=== PATIENT | male | born 1945 | race Caucasian/White ===

== ENCOUNTER 2018-12-23 16:38 | Emergency (ER) | payer MEDICARE, OTHER ==
[~2018-12-23] VITALS: Ht 182.9 cm; Wt 90.7 kg
[2018-12-23 17:30] LABS: BASOPHILS ABSOLUTE AUTO 0.06 K/mm3 (0.00-0.23); BASOPHILS PERCENT AUTO 1 % (0-2); EOSINOPHILS ABSOLUTE AUTO 0.41 K/mm3 (0.00-0.68); EOSINOPHILS PERCENT AUTO 5 % (0-6); Hematocrit 48.3 % (37.0-53.0); Hemoglobin 16.5 g/dL (13.5-17.5); IMMATURE GRAN ABSOLUTE AUTO 0.03 K/mm3 (0.00-0.10); IMMATURE GRAN PERCENT AUTO 0 % (0-1); LYMPHOCYTES ABSOLUTE AUTO 1.63 K/mm3 (0.84-5.20); LYMPHOCYTES PERCENT AUTO 21 % (21-46); MONOCYTES ABSOLUTE AUTO 0.62 K/mm3 (0.16-1.47); MONOCYTES PERCENT AUTO 8 % (4-13); Mean Corpuscular HGB 32.6 pg (26.0-34.0); Mean Corpuscular HGB Conc 34.2 g/dL (31.5-36.5); Mean Corpuscular Volume 96 fL (80-100); Mean Platelet Volume 11.8 fL (9.1-12.4); NEUTROPHILS ABSOLUTE AUTO 4.86 K/mm3 (1.96-9.15); NEUTROPHILS PERCENT AUTO 64 % (41-73); Platelet Count 128 K/mm3 (150-400); RDW Coefficient Variation 13.4 % (11.7-14.2); RDW Standard Deviation 47.6 fL (35.1-46.3); Red Blood Cell Count 5.06 M/mm3 (4.30-5.90); White Blood Cell Count 7.61 K/mm3 (4.00-11.30)
[2018-12-23 17:52] LABS: Alanine Aminotransfer (ALT/SGP 27 U/L (12-78); Albumin, Blood 3.9 g/dL (3.4-5.0); Albumin/Globulin Ratio 1.1 (0.8-1.8); Alk Phos 67 U/L (50-136); Anion Gap 4 mmol/L (6-16); Aspartate Aminotrans (AST/SGOT 20 U/L (12-37); Bilirubin, Total 0.5 mg/dL (0.1-1.0); Blood Urea Nitrogen 17 mg/dL (8-24); Bun/Creatinine Ratio 17.4 (12.0-20.0); CO2, Blood 31 mmol/L (21-32); Calcium, Blood 9.1 mg/dL (8.5-10.1); Chloride, Blood 106 mmol/L (98-108); Creatinine, Blood 0.98 mg/dL (0.60-1.20); Globulin, Blood 3.6 g/dL (2.2-4.0); Glomerular Filtration Rate >60 (60-); Glucose, Blood 114 mg/dL (70-99); Potassium, Blood 3.7 mmol/L (3.5-5.5); Sodium, Blood 141 mmol/L (136-145); Total Protein, Blood 7.5 g/dL (6.4-8.2)
== END 2018-12-23 18:59 | disposition left against medical advice (07) ==
LOC: ER 16:38
PROVIDERS: Emergency Medicine
DX: Z53.21 Procedure and treatment not carried out due to patient leaving prior to being seen by health care provider (principal)
CPT/HCPCS: 36415; 80053; 85025; 93005; 93010

== ENCOUNTER 2019-12-05 11:02 | Day surgery (SDC) | payer MEDICARE, OTHER ==
[~2019-12-05] VITALS: Ht 182.9 cm; Wt 83.2 kg
[~2019-12-05 11:02] MED LIST: ACET500 PO; AMLO5 PO; Coenzyme Q10200 M2 PO; Coumadin2 MG PO; Depo-Testo100 MG/1 M IM; LOSARTAN-HCTZ1 EACH PO; PROSTATE HEALT1 EACH PO; ROSUVASTATIN CA10 MG PO; TIOT18 INH; Vitamin D2000 UNIT PO
[2019-12-05] MEDS ORDERED: Aspir 8181 MG PO (11:41)
--- NOTE | 2019-12-05 15:18 | NUR ---
2474 PATIENT ARRIVED BACK FROM THE PROCEDURE ROOM. LEFT CHEST/SHOULDER WALL WITH DRESSING IN PLACE. NO PAIN NOTED FROM THE PATIENT. PATIENT IN A RECLINER AND MONITOR APPLIED. CALL LIGHT IN REACH. AWAKE AND MEAL SERVED. FEEDING SELF WITH RESTRICTION OF NOT LIFTING THE LEFT ARM.
[2019-12-05] MEDS ORDERED: CEPH500 PO (15:41)
[2019-12-05] MEDS ORDERED: METO25ER PO (15:46)
--- NOTE | 2019-12-05 16:02 | NUR ---
1600 DR. GONCALVES AT THE BEDSIDE FOR PACEMAKER CHECK WITH ASSEMBLER PRODUCTION LINE. MD SPOKE WITH THE PATIENT AND ALL QUESTIONS ANSWERED.
--- NOTE | 2019-12-05 17:13 | NUR ---
2893 PATIENT DRESSED AND ALL BELONGINGS RETAINED BY PATIENT. PATIENT OFF MONITOR AND PIV REMOVED, CATHETER TIP INTACT. PRESSURE DRESSING APPLIED TO PIV SITE. SLING PLACED ON PATIENT LEFT ARM. PATIENT TAKE TO RADIOLOGY VIA WHEELCHAIR. TOLERATED WELL.
--- NOTE | 2019-12-05 17:16 | NUR ---
1630 PATIENT DISCHARGED VIA WHEELCHAIR. REVIEWED DISCHARGE INSTRUCTIONS AT THE CAR WITH THE AND DAUGHTER, ALL QUESTIONS ANSWERED. FOLLOW UP APPOINTMENT IS December, AND [facility] WILL CALL ON SUNDAY TO MAKE THE APPOINTMENT. ALL INSTRUCTIONS REVIEWED, SLING, MEDICATIONS (NEW ANTIBIOTIC AND HEART MEDICATION) AND NOT TO RESUME THE COUMADIN UNTIL December INSTRUCTED. AND PATIENT VERBALIZED UNDERSTANDING AND SIGNED ALL PAPERS. DISCHARGED HOME.
== END 2019-12-05 16:30 | disposition home or self-care (01) ==
LOC: MHTC 11:02
DX: I49.5 Sick sinus syndrome (principal); I45.5 Other specified heart block; I10 Essential (primary) hypertension; E78.5 Hyperlipidemia, unspecified; I71.4 Abdominal aortic aneurysm, without rupture; I48.91 Unspecified atrial fibrillation; I25.10 Atherosclerotic heart disease of native coronary artery without angina pectoris; Z95.1 Presence of aortocoronary bypass graft; Z87.891 Personal history of nicotine dependence; Z79.01 Long term (current) use of anticoagulants; Z79.899 Other long term (current) drug therapy; Z79.82 Long term (current) use of aspirin
CPT/HCPCS: 33207; 71046; 76937; 99152; 99153; C1786; C1894; C1898; J0690; J1644; J2250; J3010; J7030; J7040

== ENCOUNTER 2021-09-22 14:37 | Emergency (ER) | payer OTHER ==
[~2021-09-22] VITALS: Ht 182.9 cm; Wt 83.0 kg
[~2021-09-22 14:37] MED LIST changes: +Aspir 8181 MG PO; +CEPH500 PO; +METO25ER PO
[2021-09-22 15:30] LABS: BASOPHILS ABSOLUTE AUTO 0.08 K/mm3 (0.00-0.23); BASOPHILS PERCENT AUTO 1 % (0-2); EOSINOPHILS ABSOLUTE AUTO 0.44 K/mm3 (0.00-0.68); EOSINOPHILS PERCENT AUTO 5 % (0-6); Hematocrit 39.5 % (37.0-53.0); Hemoglobin 13.3 g/dL (13.5-17.5); IMMATURE GRAN ABSOLUTE AUTO 0.02 K/mm3 (0.00-0.10); IMMATURE GRAN PERCENT AUTO 0 % (0-1); LYMPHOCYTES PERCENT AUTO 16 % (21-46); MONOCYTES ABSOLUTE AUTO 0.98 K/mm3 (0.16-1.47); MONOCYTES PERCENT AUTO 12 % (4-13); Mean Corpuscular HGB 31.1 pg (26.0-34.0); Mean Corpuscular HGB Conc 33.7 g/dL (31.5-36.5); Mean Corpuscular Volume 93 fL (80-100); Mean Platelet Volume 10.5 fL (9.1-12.4); NEUTROPHILS ABSOLUTE AUTO 5.39 K/mm3 (1.96-9.15); NEUTROPHILS PERCENT AUTO 66 % (41-73); Platelet Count 209 K/mm3 (150-400); RDW Coefficient Variation 12.7 % (11.7-14.2); RDW Standard Deviation 43.5 fL (35.1-46.3); Red Blood Cell Count 4.27 M/mm3 (4.30-5.90); White Blood Cell Count 8.21 K/mm3 (4.00-11.30)
[2021-09-22 15:34] LABS: Influenza A, PCR NEGATIVE (NEGATIVE); Influenza B, PCR NEGATIVE (NEGATIVE); Resp Syncytial Virus, PCR NEGATIVE (NEGATIVE); SARS-Cov-2 (COVID-19) PCR, MMC NEGATIVE (NEGATIVE)
[2021-09-22 15:41] LABS: Alanine Aminotransfer (ALT/SGP 24 U/L (12-78); Albumin, Blood 3.3 g/dL (3.4-5.0); Albumin/Globulin Ratio 0.8 (0.8-1.8); Alk Phos 68 U/L (50-136); Anion Gap 6 mmol/L (6-16); Aspartate Aminotrans (AST/SGOT 14 U/L (12-37); Bilirubin, Total 0.4 mg/dL (0.1-1.0); Blood Urea Nitrogen 18 mg/dL (8-24); Bun/Creatinine Ratio 21.1 (12.0-20.0); CO2, Blood 31 mmol/L (21-32); Chloride, Blood 96 mmol/L (98-108); Creatinine, Blood 0.85 mg/dL (0.60-1.20); Globulin, Blood 4.1 g/dL (2.2-4.0); Glomerular Filtration Rate >60 (60-); Glucose, Blood 119 mg/dL (70-99); Potassium, Blood 3.8 mmol/L (3.5-5.5); Sodium, Blood 133 mmol/L (136-145); Total Protein, Blood 7.4 g/dL (6.4-8.2)
[2021-09-22] MEDS ORDERED: Prozac20 MG PO (16:37)
[2021-09-22] MEDS ORDERED: AZIT250 PO (18:32)
== END 2021-09-22 18:48 | disposition home or self-care (01) ==
LOC: ER 14:37
PROVIDERS: Physician Assistant
DX: J40 Bronchitis, not specified as acute or chronic (principal); Z20.822 Contact with and (suspected) exposure to COVID-19; F17.200 Nicotine dependence, unspecified, uncomplicated; Z79.899 Other long term (current) drug therapy
CPT/HCPCS: 0241U; 36415; 71046; 80053; 83690; 85025; 99283-25; A9270

== ENCOUNTER 2021-09-26 18:30 | Inpatient (IN) | payer OTHER ==
[~2021-09-26] VITALS: Ht 182.9 cm; Wt 79.1 kg
[~2021-09-26 18:30] MED LIST changes: +AZIT250 PO; -PROSTATE HEALT1 EACH PO; +Prozac20 MG PO; +SAW PO; +SOD SEL PO; +VIT E PO; +[UNRECOGNIZED DRUG - OTHER] PO
[2021-09-26 19:54] LABS: BASOPHILS ABSOLUTE AUTO 0.06 K/mm3 (0.00-0.23); BASOPHILS PERCENT AUTO 0 % (0-2); EOSINOPHILS ABSOLUTE AUTO 0.07 K/mm3 (0.00-0.68); EOSINOPHILS PERCENT AUTO 0 % (0-6); Hematocrit 39.2 % (37.0-53.0); Hemoglobin 13.4 g/dL (13.5-17.5); IMMATURE GRAN ABSOLUTE AUTO 0.14 K/mm3 (0.00-0.10); IMMATURE GRAN PERCENT AUTO 1 % (0-1); LYMPHOCYTES ABSOLUTE AUTO 1.29 K/mm3 (0.84-5.20); LYMPHOCYTES PERCENT AUTO 6 % (21-46); MONOCYTES ABSOLUTE AUTO 1.42 K/mm3 (0.16-1.47); MONOCYTES PERCENT AUTO 7 % (4-13); Mean Corpuscular HGB 31.5 pg (26.0-34.0); Mean Corpuscular HGB Conc 34.2 g/dL (31.5-36.5); Mean Corpuscular Volume 92 fL (80-100); NEUTROPHILS ABSOLUTE AUTO 18.47 K/mm3 (1.96-9.15); NEUTROPHILS PERCENT AUTO 86 % (41-73); Platelet Count 201 K/mm3 (150-400); RDW Coefficient Variation 12.8 % (11.7-14.2); RDW Standard Deviation 43.3 fL (35.1-46.3); Red Blood Cell Count 4.26 M/mm3 (4.30-5.90); White Blood Cell Count 21.45 K/mm3 (4.00-11.30)
[2021-09-26 20:05] LABS: Alanine Aminotransfer (ALT/SGP 28 U/L (12-78); Albumin, Blood 3.2 g/dL (3.4-5.0); Albumin/Globulin Ratio 0.7 (0.8-1.8); Alk Phos 69 U/L (50-136); Anion Gap 5 mmol/L (6-16); Aspartate Aminotrans (AST/SGOT 16 U/L (12-37); Bilirubin, Total 0.6 mg/dL (0.1-1.0); Blood Urea Nitrogen 22 mg/dL (8-24); CO2, Blood 27 mmol/L (21-32); Chloride, Blood 98 mmol/L (98-108); Creatinine, Blood 1.05 mg/dL (0.60-1.20); Globulin, Blood 4.3 g/dL (2.2-4.0); Glomerular Filtration Rate >60 (60-); Glucose, Blood 157 mg/dL (70-99); Potassium, Blood 3.7 mmol/L (3.5-5.5); Sodium, Blood 130 mmol/L (136-145); Total Protein, Blood 7.5 g/dL (6.4-8.2)
[2021-09-26 23:34] LABS: Source, Urine Clean Catch
[2021-09-26 23:35] LABS: Bilirubin, Urine Neg (Neg); Blood, Urine 4+ (Neg); Glucose Qualitative, Urine Neg (Neg); Ketones, Urine 1+ (Neg); Leukocyte Esterase, Urine 3+ (Neg); Nitrite, Urine Pos (Neg); Protein, Urine 3+ (Neg); Urobilinogen, Urine 1+ (Normal)
[2021-09-26 23:43] LABS: Appearance, Urine Hazy (Clear); Color, Urine Yellow (P-Yellow)
[2021-09-26 23:44] LABS: White Blood Cells, Urine 25-50 /hpf (0-5)
[2021-09-26 23:45] LABS: Bacteria Many /hpf; Squamous Epithelial Cells Few /hpf (Few)
[2021-09-26 23:53] LABS: International Normalized Ratio 2.09; Prothrombin Time Results 20.9 Sec (9.7-11.5)
[2021-09-27] MEDS ORDERED: AZIT250 PO (02:22)
--- NOTE | 2021-09-27 03:09 | NUR ---
ADMIT NOTE 76 YR OLD MALE ADMITTED TO FLOOR FROM THE ED WITH DX OF SEPSIS AND UTI. REPORTED FOUND DOWN AT HOME. CXR NEGATIVE RESULTS. HEAD AND SPINE CT NO ACUTE CHANGES. ORIENTED TO USE OF CALL LIGHT. RAILS UP X 3. CALL LIGHT IN REACH. BED ALARM ON
[2021-09-27 05:50] LABS: BASOPHILS ABSOLUTE AUTO 0.06 K/mm3 (0.00-0.23); BASOPHILS PERCENT AUTO 0 % (0-2); EOSINOPHILS ABSOLUTE AUTO 0.13 K/mm3 (0.00-0.68); EOSINOPHILS PERCENT AUTO 1 % (0-6); Hemoglobin 12.4 g/dL (13.5-17.5); IMMATURE GRAN PERCENT AUTO 1 % (0-1); LYMPHOCYTES ABSOLUTE AUTO 0.96 K/mm3 (0.84-5.20); LYMPHOCYTES PERCENT AUTO 5 % (21-46); MONOCYTES ABSOLUTE AUTO 1.36 K/mm3 (0.16-1.47); MONOCYTES PERCENT AUTO 8 % (4-13); Mean Corpuscular HGB 31.4 pg (26.0-34.0); Mean Corpuscular HGB Conc 34.4 g/dL (31.5-36.5); Mean Corpuscular Volume 91 fL (80-100); Mean Platelet Volume 10.9 fL (9.1-12.4); NEUTROPHILS ABSOLUTE AUTO 15.06 K/mm3 (1.96-9.15); NEUTROPHILS PERCENT AUTO 85 % (41-73); Platelet Count 186 K/mm3 (150-400); RDW Coefficient Variation 12.7 % (11.7-14.2); RDW Standard Deviation 42.9 fL (35.1-46.3); Red Blood Cell Count 3.95 M/mm3 (4.30-5.90); White Blood Cell Count 17.67 K/mm3 (4.00-11.30)
[2021-09-27 06:28] LABS: Alanine Aminotransfer (ALT/SGP 24 U/L (12-78); Albumin, Blood 2.8 g/dL (3.4-5.0); Albumin/Globulin Ratio 0.7 (0.8-1.8); Alk Phos 67 U/L (50-136); Anion Gap 9 mmol/L (6-16); Aspartate Aminotrans (AST/SGOT 24 U/L (12-37); Bilirubin, Total 0.6 mg/dL (0.1-1.0); Blood Urea Nitrogen 19 mg/dL (8-24); CO2, Blood 25 mmol/L (21-32); Chloride, Blood 99 mmol/L (98-108); Creatinine, Blood 0.79 mg/dL (0.60-1.20); Globulin, Blood 3.8 g/dL (2.2-4.0); Glomerular Filtration Rate >60 (60-); Glucose, Blood 119 mg/dL (70-99); Potassium, Blood 3.5 mmol/L (3.5-5.5); Sodium, Blood 133 mmol/L (136-145); Total Protein, Blood 6.6 g/dL (6.4-8.2)
--- NOTE | 2021-09-27 11:23 | NUR ---
NURSE IS AWARE OF PT'S CONFUSION. PT KEEPS STANDING UP SETTING OF ALARM BUT SAYS HE DOESN'T NEED HELP OR WANT ANYTHING.
[2021-09-27 16:56] LABS: International Normalized Ratio 2.04; Prothrombin Time Results 20.4 Sec (9.7-11.5)
--- NOTE | 2021-09-27 17:03 | NUR ---
PT. COMPLAINS OF SMALL BUMP ON LEFT SIDE OF LIP. PATIENT COMPLAINS OF FREQUENCY, PAIN, AND DIFFICULTY VOIDING. PROVIDER WILL ASSESS PATIENT'S IMAGING FOR FLUID LESION NEAR LIP AND PLACE ORDERS FOR PYRIDUM FOR PAINFUL URINATION.
--- NOTE | 2021-09-27 17:41 | NUR ---
PT. WAS TRYING TO RUN OUT DOOR OF ROOM AND IS ORIENTED ONLY TO SELF AND FAMILY. PATIENT GOT AGGITATED AND HAD TO BE ESCORTED BY STAFF AND DAUGHTER BACK TO BED. PROVIDER STATED SHE WILL PLACE ORDERS FOR AGGITATION AND URINARY PAIN.
[2021-09-28 04:44] LABS: Hematocrit 44.4 % (37.0-53.0); Hemoglobin 14.8 g/dL (13.5-17.5); Mean Corpuscular HGB Conc 33.3 g/dL (31.5-36.5); Mean Corpuscular Volume 93 fL (80-100); Mean Platelet Volume 10.2 fL (9.1-12.4); Platelet Count 224 K/mm3 (150-400); RDW Coefficient Variation 12.7 % (11.7-14.2); RDW Standard Deviation 43.6 fL (35.1-46.3); Red Blood Cell Count 4.78 M/mm3 (4.30-5.90); White Blood Cell Count 13.58 K/mm3 (4.00-11.30)
[2021-09-28 04:51] LABS: International Normalized Ratio 1.75; Prothrombin Time Results 17.7 Sec (9.7-11.5)
[2021-09-28 05:01] LABS: Albumin, Blood 3.5 g/dL (3.4-5.0); Anion Gap 8 mmol/L (6-16); Blood Urea Nitrogen 17 mg/dL (8-24); Bun/Creatinine Ratio 21.9 (12.0-20.0); CO2, Blood 29 mmol/L (21-32); Calcium, Blood 9.7 mg/dL (8.5-10.1); Chloride, Blood 98 mmol/L (98-108); Creatinine, Blood 0.78 mg/dL (0.60-1.20); Glomerular Filtration Rate >60 (60-); Glucose, Blood 122 mg/dL (70-99); Potassium, Blood 3.2 mmol/L (3.5-5.5); Sodium, Blood 135 mmol/L (136-145)
--- NOTE | 2021-09-28 05:05 | NUR ---
SHIFT SUMMARY: PATIENT RESTLESS AT START OF SHIFT. DAY RN HAD RECENTLY ADMNISITERED PRN SEROQUEL. PATIENT IS A&OX2, IMPULSIVE, PULLING AT CLOTHING AND LINES. HE HAD MULTIPLE LARGE URINARY INCONTINENT EPISODES REQUIRING FULL LINEN CHANGE. XL INCONT BM, PATIENT WAS GIVEN A SHOWER. HAS BEEN IMPULSIVE AND BED JUMPING FREQUENTLY SINCE AWAKING AT 415AM. PRN SEROQUEL GIVEN. WCTM.
--- NOTE | 2021-09-28 11:48 | NUR ---
DR. RENE CALLED PATIENTS FAMILY WOULD LIKE AN UPDATE ON PLAN OF CARE. PROVIDER STATED HE WILL ATTEMPT TO VISIT IN 30MIN.
--- NOTE | 2021-09-28 12:31 | NUR ---
PATIENT IS DROWSY DUE TO SEROQUEL THIS AM. MENTAL STATUS IS UNCHANGED HOWEVER PATIENT IS LESS IMPULSIVE. PATIENT STILL DOSE NOT USE CALL LIGHT. PATIENT ORIENTED TO SELF AND PLACE. PATIENT STILL IS UNSTEADY WITH GAIT. AND IS CONTINENT/INCONT OF BLADDER AND BOWEL.
--- NOTE | 2021-09-29 04:40 | NUR ---
SHIFT SUMMARY: PATIENT MORE LUCID TONIGHT, BUT FORGETFUL EASILY REDIRECTRED. PATIENT REAMINS IMPULSIVE AND HAD MULTIPLE BED EXITS ON NOC, DOES NOT USE WALKER SAFELY. APPROX 2300 PATIENT RESTLESS BED EXITS, FIDGETING IN BED, REMOVED PIV, DID NOT WANT TO RETURN TO BED THEREFORE PATIENT SAT IN CHAIR FOR AN HOUR BEFORE RETURNING TO BED. PATIENT WAS PLEASANT DURING ALL STAFF INTERACTIONS. NO SEROQUEL GIVEN THERE WERE NO SIGNS OF AGITATION DISPLAYED. PATIENT WOKE UP TO USE THE BATHROOM, DID NOT HAVE ANY INCOTNINET EPISODES ON NOC. WCTM.
[2021-09-29 05:12] LABS: BASOPHILS ABSOLUTE AUTO 0.06 K/mm3 (0.00-0.23); BASOPHILS PERCENT AUTO 1 % (0-2); EOSINOPHILS ABSOLUTE AUTO 0.41 K/mm3 (0.00-0.68); EOSINOPHILS PERCENT AUTO 4 % (0-6); Hematocrit 38.7 % (37.0-53.0); Hemoglobin 12.7 g/dL (13.5-17.5); IMMATURE GRAN ABSOLUTE AUTO 0.04 K/mm3 (0.00-0.10); IMMATURE GRAN PERCENT AUTO 0 % (0-1); LYMPHOCYTES ABSOLUTE AUTO 1.22 K/mm3 (0.84-5.20); LYMPHOCYTES PERCENT AUTO 13 % (21-46); MONOCYTES ABSOLUTE AUTO 0.85 K/mm3 (0.16-1.47); MONOCYTES PERCENT AUTO 9 % (4-13); Mean Corpuscular HGB 30.8 pg (26.0-34.0); Mean Corpuscular HGB Conc 32.8 g/dL (31.5-36.5); Mean Corpuscular Volume 94 fL (80-100); Mean Platelet Volume 10.3 fL (9.1-12.4); NEUTROPHILS ABSOLUTE AUTO 6.96 K/mm3 (1.96-9.15); NEUTROPHILS PERCENT AUTO 73 % (41-73); Platelet Count 208 K/mm3 (150-400); RDW Coefficient Variation 12.9 % (11.7-14.2); RDW Standard Deviation 44.7 fL (35.1-46.3); Red Blood Cell Count 4.12 M/mm3 (4.30-5.90); White Blood Cell Count 9.54 K/mm3 (4.00-11.30)
[2021-09-29 05:25] LABS: International Normalized Ratio 2.87; Prothrombin Time Results 28.1 Sec (9.7-11.5)
[2021-09-29 05:56] LABS: Anion Gap 7 mmol/L (6-16); Blood Urea Nitrogen 20 mg/dL (8-24); Bun/Creatinine Ratio 22.9 (12.0-20.0); CO2, Blood 26 mmol/L (21-32); Chloride, Blood 104 mmol/L (98-108); Creatinine, Blood 0.88 mg/dL (0.60-1.20); Glomerular Filtration Rate >60 (60-); Glucose, Blood 101 mg/dL (70-99); Potassium, Blood 3.8 mmol/L (3.5-5.5); Sodium, Blood 137 mmol/L (136-145)
--- NOTE | 2021-09-29 08:14 | NUR ---
MR WOODALL IS RESTING IN THE CHAIR NOW. ORIENTATED TO SELF, SEPTEMBER 2019 AND [facility] WILL OR. CONFUSED CONVERSATION AND HAS TO BE FREQUENTLY REMINDED OF INSTRUCTIONS. HE HAS SET OFF [facility] BED ALARM A FEW TIMES ALREADY THIS MORNING, CALL LIGHT IN REACH, CHAIR ALARM ON. REMINDED TO NOT GET UP BY HIMSELF FREQENTLY.
[2021-09-29] MEDS ORDERED: TOPROL XL25 MG PO (11:06)
[2021-09-29] MEDS ORDERED: AMOX500 PO (11:06)
--- NOTE | 2021-09-29 12:01 | NUR ---
Received referral from nurse ambulatory care coordinator (Christine Myers) on 09/29/2021. Patient is to dsicharge with orders for home health and elected [facility]. Met with patient's (Sita Calderón) and daughter (Yvonne Parkinson and Lorena Boland) to further discuss the above. Patient's family is agreeable to the above. Discussed homebound status definition with patient's family. Patient's family verbalized understanding. Discussed what home health is vs what it is not (in home caregivers/housekeeping). Patient's family verbalized understanding. Discussed the next steps in the process of an initial assessment to determine frequency of visits. Again patient's family verbalized understanding. Offered a chance for patient's family to ask questions regarding the above of which there were none. Gathered all supporting documentation for referral (face sheet, face to face, med list, H&P, and most recent physical therapy notes) and sent to [facility] for review. No further interventions required. Marielle Souza Referral Liaison
--- NOTE | 2021-09-29 12:10 | NUR ---
DISCHARGE NOTE- PT AND FAMILY WERE GIVEN VERBAL AND WRITTEN DISCHARGE INSTRUCTIONS, THEY HAD NO FURTHER QUESTIONS AT THE TIME OF DISCHARGE. PT HAD NO S&S OF DISTRESS NOTED AT THE TIME OF DISCHARGE AND WAS ESCORTED OUT VIA WC BY THE BRAZING MACHINE SETTER.
== END 2021-09-29 12:00 | disposition home health service (06) | DRG 871 ==
LOC: ER 18:30 → MEDS 09-27 02:34
PROVIDERS: Emergency Medicine; Family Medicine; Internal Medicine; Pharmacist; Physician Assistant; ADMIT Internal Medicine
DX: A41.50 Gram-negative sepsis, unspecified (principal); G92.8 Other toxic encephalopathy; N39.0 Urinary tract infection, site not specified; I48.20 Chronic atrial fibrillation, unspecified; E87.1 Hypo-osmolality and hyponatremia; I67.89 Other cerebrovascular disease; I50.32 Chronic diastolic (congestive) heart failure; S09.90XA Unspecified injury of head, initial encounter; E86.0 Dehydration; I49.5 Sick sinus syndrome; I11.0 Hypertensive heart disease with heart failure; G31.84 Mild cognitive impairment of uncertain or unknown etiology; Z23 Encounter for immunization; F32.A Depression, unspecified; I25.10 Atherosclerotic heart disease of native coronary artery without angina pectoris; J44.9 Chronic obstructive pulmonary disease, unspecified; F17.290 Nicotine dependence, other tobacco product, uncomplicated; Z95.1 Presence of aortocoronary bypass graft; Z79.01 Long term (current) use of anticoagulants; Z95.0 Presence of cardiac pacemaker; Z79.82 Long term (current) use of aspirin; Z79.899 Other long term (current) drug therapy; W19.XXXA Unspecified fall, initial encounter
CPT/HCPCS: 36415; 70450; 71046; 72125; 80048; 80053; 80069; 81001; 83605; 84443; 84484; 85025; 85027; 85610; 87040; 87077; 87086; 87186; 90686; 93005; 93010; 94640; 94664; 94760; 96374; 97116; 97129; 97162; 97166; 97530; 97535; 99285-25; A9270; J0696; J7030